=== PATIENT | male | born 1985 ===

== ENCOUNTER 2016-04-13 19:04 | Emergency (ER) | payer OTHER ==
[2016-04-13] MEDS ORDERED: MOTRIN PO ONE (23:10)
[2016-04-13] MEDS ORDERED: DUONEB 0.5 MG-3 MG/3 ML SOLN IH ONE (23:11)
[2016-04-13] MEDS ORDERED: ZOFRAN ODT PO ONE (23:14)
[2016-04-13 23:28] LABS: Basophils % (Auto) 0.2 % (0.0-1.8); Hematocrit 41.7 % (35.5-45.6); Hemoglobin 13.6 gm/dl (11.8-15.2); Mean Corpuscular HGB Conc 33 % (32-34); Mean Corpuscular Volume 79 fl (84-94); Platelet Count 127 K/mm3 (140-440); Red Cell Distribution Width 13.4 % (13.2-15.2); White Blood Count 3.6 K/mm3 (4.5-11.0)
[2016-04-13 23:30] LABS: Mean Corpuscular Hemoglobin 26 pg (28-32)
[2016-04-13 23:51] LABS: Alanine Aminotransferase 35 units/L (7-56); Albumin 3.6 g/dL (3.9-5); Alkaline Phosphatase 47 units/L (35-129); Bilirubin,Direct 0.2 mg/dL (0-0.2); Bilirubin,Indirect 0.5 mg/dL; Bilirubin,Total 0.7 mg/dL (0.1-1.2); Blood Urea Nitrogen 10 mg/dL (9-20); Calcium 8.5 mg/dL (8.4-10.2); Carbon Dioxide 25 mmol/L (22-30); Glucose 106 mg/dL (75-100); Potassium 3.8 mmol/L (3.6-5.0); Sodium 132 mmol/L (137-145); Total Protein 7.2 g/dL (6.3-8.2)
[2016-04-13 23:55] LABS: Anion Gap 18 mmol/L
--- NOTE | 2016-04-14 00:15 | XRay Report ---
FINAL REPORT PROCEDURE: PA and lateral chest x-ray TECHNIQUE: PA and lateral chest radiographs were obtained. CPT 69618 HISTORY: cough, fever, recent travel from [place] ? [facility] COMPARISON: No prior studies are available for comparison. FINDINGS: Heart: Normal. Mediastinum/Vessels: Normal. Lungs/Pleural space: Normal. Bony thorax: No acute osseous abnormality. There is mild to moderate curvature thoracic spine convex the right apex at T8 consistent with scoliosis Other: IMPRESSION: Scoliosis otherwise negative exam. No focal infiltrates are identified..
--- NOTE | 2016-04-14 01:01 | Emergency Department Report ---
[id number] Complaint: COLD/FEVER/HEADACHE/BODY PAIN Time Seen by Provider: 04/13/16 23:03 - Related Data Previous Rx's Medication Instructions Recorded Last Taken Type Acetaminophen [Acetaminophen 8 650 mg PO Q8H #30 tablet.er 04/14/16 Unknown Rx Hour] Ondansetron [Zofran Odt] 8 mg PO Q8H #30 tab.rapdis 04/14/16 Unknown Rx Allergies Allergy/AdvReac Type Severity Reaction Status Date / Time No Known Allergies Allergy Unverified 04/13/16 19:41 ED Review of Systems ROS: Stated complaint: COLD/FEVER/HEADACHE/BODY PAIN Other details as noted in HPI ED Past Medical Hx - Medications Home Medications: Home Medications Medication Instructions Recorded Confirmed Last Taken Type Acetaminophen [Acetaminophen 8 650 mg PO Q8H #30 tablet.er 04/14/16 Unknown Rx Hour] Ondansetron [Zofran Odt] 8 mg PO Q8H #30 tab.rapdis 04/14/16 Unknown Rx ED Course Vital Signs 04/13/16 04/13/16 04/13/16 19:39 23:39 23:51 Temperature 99.1 F Pulse Rate 102 H Pulse Rate [ 102 H 98 H Posterior Bilateral Lower Lobe] Pulse Rate [ 102 H 98 H Posterior Bilateral Upper Lobe] Respiratory 16 Rate Respiratory 18 18 Rate [Posterior Bilateral Lower Lobe] Respiratory 18 18 Rate [Posterior Bilateral Upper Lobe] Blood Pressure 123/82 Blood Pressure [Right] O2 Sat by Pulse 99 Oximetry 04/14/16 04/14/16 00:31 05:38 Temperature 102.8 F H 97.8 F Pulse Rate 67 Pulse Rate [ Posterior Bilateral Lower Lobe] Pulse Rate [ Posterior Bilateral Upper Lobe] Respiratory 16 Rate Respiratory Rate [Posterior Bilateral Lower Lobe] Respiratory Rate [Posterior Bilateral Upper Lobe] Blood Pressure Blood Pressure 105/74 [Right] O2 Sat by Pulse 98 Oximetry ED Medical Decision Making - Lab Data Result diagrams: 04/13/16 23:18 04/13/16 23:18 - Medical Decision Making 31-year-old male presents with flulike symptoms. ED course: Patient received Motrin, Tylenol, Zofran and 1 L of fluids while in ED. Rapid strep test negative, influenza rapid test negative, chest x-ray report shows no focal infiltrates or any abnormality. Mild scoliosis is seen otherwise Normal chest x-ray. Patient is demanding that he is tired and ready to go home and could not wait any longer. Spoke with Lisy from microbiology who states to preliminary results shows no parasitic growth and is negative for malaria but cannot be certain as she is not micro-expert and will want the micro-expert to take a look at the smear at 6 AM when they arrive. Spoke with Dr. kruse the infectious disease doctor filling station laborer, discussed case with him. He states patient can be discharged and if the blood smears, positive for malaria can be called and treated. Patient is okay with this plan as he is ready to go and does not want to wait any further. Discussed the patient called back and will be called back tomorrow after blood smears, back. Discussed [id number] medications for symptomatic relief. Vital signs prior to discharge much better and stable. Discussed If the blood smears come back positive to return to ED to be treated. She states he verbally understands and will call back tomorrow for his results. Discussed to follow-up with primary care physician referrals as given. Discussed if symptoms worsen or fever elevates to return to ED Critical care attestation.: If time is entered above; I have spent that time in minutes in the direct care of this critically ill patient, excluding procedure time. ED Disposition Clinical Impression: Cold, Flu-like symptoms URI (upper respiratory infection) Qualifiers: URI type: unspecified viral URI Qualified Code(s): J06.9 - Acute upper respiratory infection, unspecified Disposition: DISCHARGED TO HOME OR SELFCARE Is pt being admited?: No Does the pt Need Aspirin: No Condition: Stable Instructions: Antihistamine/Antitussive/Decongestant (By mouth), Pharyngitis ( ED), Upper Respiratory Infection (ED) Additional Instructions: Take [id number] medications for symptomatic relief Medications such as Tylenol cold, TheraFlu, Robitussin, DayQuil, NyQuil. Prescriptions: Acetaminophen [Acetaminophen 8 Hour] 650 mg PO Q8H #30 tablet.er Ondansetron [Zofran Odt] 8 mg PO Q8H #30 tab.rapdis Referrals: PRIMARY CARE, [Primary Care Provider] - 3-5 Days [facility] [Outside] - 3-5 Days [facility] [Outside] - 3-5 Days [facility] [Outside] - 3-5 Days [facility] [Outside] - 3-5 Days Forms: Work/School Release Form(ED), Accompanied Note Time of Disposition: 05:04 <BELLA BENAVIDES - Last Filed: 04/16/16 19:55> - General Source: patient Mode of arrival: Ambulatory Limitations: No Limitations - History of Present Illness Initial Comments: 31-year-old male past medical history none presents with complaint of 1.5 weeks of bodyaches sore throat fever or chills, dry nonproductive cough. Patient denies any hemoptysis, no weight loss, no unexplained weight loss in last 6 months. Patient traveled from [facility], lived in [place] and migrated here on . States that the cough sore throat and body aches have been getting worse which is why he came to the emergency room today. Patient awake alert and oriented 3, not in acute distress, coughing. She denies any vomiting or dysuria. Does feel nauseous. Denies any recent sick contacts. Denies any recent travel to the [place]. States that he is having coughing fits which are giving him minor chest discomfort. States the sore throat is also bothering him and he has decreased appetite. Denies any hematuria. Speaks Croatian fluently. MD Complaint: fever, cough, sore throat, rhinorrhea, nasal congestion Onset/Timin -: week(s) Severity: moderate Severity scale (0 -10): 6 Quality: aching Consistency: constant Improves With: nothing Worsens With: nothing Context: recent travel (patient traveled from [facility] 04/02/16) Associated Symptoms: fever, chills, myalgias, headache, cough, nausea ED Review of Systems Constitutional: chills, fever, malaise Eyes: denies: eye pain, eye discharge, vision change ENT: throat pain Respiratory: cough Cardiovascular: denies: chest pain, palpitations Endocrine: no symptoms reported Gastrointestinal: nausea Genitourinary: denies: urgency, dysuria Musculoskeletal: as per HPI, myalgia (diffuse body aches). denies: back pain, joint swelling, arthralgia Skin: denies: rash, lesions Neurological: denies: headache, weakness, paresthesias Psychiatric: denies: anxiety, depression Hematological/Lymphatic: denies: easy bleeding, easy bruising ED Past Medical Hx - Past Medical History Previous Medical History?: No - Surgical History Past Surgical History?: No - Social History Smoking Status: Current Some Day Smoker ED Physical Exam - General Limitations: No Limitations General appearance: alert, in no apparent distress - Head Head exam: Present: atraumatic, normocephalic - Eye Eye exam: Present: normal appearance, PERRL, EOMI - ENT ENT exam: Present: mucous membranes moist - Neck Neck exam: Present: normal inspection - Respiratory Respiratory exam: Present: normal lung sounds bilaterally. Absent: respiratory distress - Cardiovascular Cardiovascular Exam: Present: regular rate, normal rhythm. Absent: systolic murmur, diastolic murmur, rubs, gallop - GI/Abdominal GI/Abdominal exam: Present: soft, normal bowel sounds - Rectal Rectal exam: Present: deferred - Extremities Exam Extremities exam: Present: normal inspection - Back Exam Back exam: Present: normal inspection - Neurological Exam Neurological exam: Present: alert, oriented X3, CN II-XII intact, normal gait - Psychiatric Psychiatric exam: Present: normal affect, normal mood - Skin Skin exam: Present: warm, dry, intact, normal color. Absent: rash ED Course - Reevaluation(s) Reevaluation #1: 04/14/16 01:06 As patient recently migrated to the [place] from [place] and had consolation of symptoms similar to the flu I considered [place] respiratory syndrome coronavirus, TB as well. Basic labs show elevated LDH, mild leukopenia and mild thrombocytopenia. I discussed case with Dr. May who advised me to call [facility] hotline at [phone]. I discussed case with CDC benefits representative on hotline, log #[id number]. CDC benefits representative deferred me to [facility] phone number [phone], I called the number and reported the case and my clinical concerns. I received a call back from Dr. Clay and discussed case with her. Given patient's clinical presentation and constellation of symptoms the consideration is for malaria versus dengue lower likelihood of chikungunya or Zika virus. As per Dr. Clay there had been no reported cases of MERS syndrome virus in [place] and this patient has not visited [facility] where has not had exposure directly to murmurs as per patient is extremely unlikely to be the case clinically for the patient. As per CDC recommendations I will send peripheral blood smear to test for blood parasites including malaria and dengue. I updated Dr. May and the patient concerning the clinical plan. At this time patient has negative influenza swab, negative strep test, chest x- ray read as normal 04/14/16 01:10 ED Medical Decision Making - Lab Data Result diagrams: 04/13/16 23:18 04/13/16 23:18 - Medical Decision Making A/P: Flu versus viral syndrome versus MERS versus pneumonia; fever of unknown origin 1-case extensively discussed with who monitored management of case/ patient 2- please review ED course documentation for my discussion with CDC and [facility] board 3- I signed pt out to [facility] upon end of my shift, malaria/ blood parasite smear sent as per CDC recommendation, second team to continue management
[2016-04-14] MEDS ORDERED: NACL 0.9% 1000 ML 1,000 ML IV ONE (01:05)
[2016-04-14] MEDS ORDERED: TYLENOL PO ONE (01:06)
[2016-04-14 01:54] LABS: Bilirubin,Urine NEG (Negative); Blood,Urine SM (Negative); Ketones,Urine 80 mg/dL (Negative); Leukocyte Esterase,Urine NEG (Negative); Mucus,Urine 3+ /HPF; Nitrite,Urine NEG (Negative); Urobilinogen,Urine < 2.0 mg/dL (<2.0)
[2016-04-14 05:39] VITALS: BP 105/74
== END 2016-04-14 05:25 | disposition home or self-care (01) ==
LOC: ED 19:04
DX: J11.1 Influenza due to unidentified influenza virus with other respiratory manifestations (principal); J00 Acute nasopharyngitis [common cold]; J06.9 Acute upper respiratory infection, unspecified; Z72.0 Tobacco use
CPT/HCPCS: 36415; 71020; 80048; 80074; 81001; 83615; 85025; 87086; 87116; 87207; 87400; 87430; 94640; 96360; 99284; J7030; Q0162